=== PATIENT | female | born 1995 | race Caucasian/White ===

== ENCOUNTER 2017-09-10 20:47 | Emergency (ER) | payer MEDICAID ==
[2017-09-10 21:35] LABS: URINE BLOOD (Dip) POC Negative (NEGATIVE); URINE GLUCOSE (Dip) POC Negative (NEGATIVE); URINE KETONES (Dip) POC Negative (NEGATIVE); URINE LEUKOCYTE EST (Dip) POC Negative (NEGATIVE); URINE NITRITE (Dip) POC Negative (NEGATIVE); URINE TOTAL PROTEIN POC Negative (NEGATIVE)
[2017-09-10] MEDS: SOD CHLORIDE 0.9% 1,000 ML IV (21:40)
[2017-09-10] MEDS: METOCLOPRAMIDE 10 MG INJ IV (21:40)
[2017-09-10] MEDS: DIPHENHYDRAMINE 50 MG INJ IV (21:40)
[2017-09-10] MEDS: KETOROLAC 30 MG INJ IV (21:45)
== END 2017-09-10 23:25 | disposition home or self-care (01) ==
LOC: FTE 20:47
DX: R51 Headache (principal)
CPT/HCPCS: 81003; 81025; 96374; 96375; 99284-25